=== PATIENT | male | born 1945 | race Caucasian/White ===

== ENCOUNTER 2019-10-18 08:46 | Inpatient (IN) | payer OTHER ==
[~2019-10-18] VITALS: Ht 177.8 cm; Wt 74.5 kg
[2019-10-18] MEDS ORDERED: ONDANSETRON HCL 4 MG/2 ML VIAL IV ONE (09:00)
[2019-10-18] MEDS ORDERED: HYDROmorphone HCL 2 MG/ML VL IV ONE (09:00)
[2019-10-18] MEDS ORDERED: DOPamine 1600MCG/ML D5W 250 ML IV ONE ×2 (09:04→09:15)
[2019-10-18 09:13] LABS: Basophils # (auto) 0.1 10 ^3/uL (0-0.2); Basophils % (auto) 1.6 % (0.0-2.0); Eosinophils # (auto) 0 10 ^3/uL (0-0.8); Eosinophils % (auto) 0.9 % (0.0-7.0); Hematocrit 49.1 % (41.0-53.0); Hemoglobin 16.5 g/dL (13.5-17.5); Lymphocytes # (auto) 1.3 10 ^3/uL (0.4-5.4); Lymphocytes % (auto) 24.6 % (10.0-50.0); Mean Corpuscular Hemoglobin 30.7 pg (28.0-32.0); Mean Corpuscular Hgb Conc. 33.6 g/dL (32.0-36.0); Mean Corpuscular Volume 91.4 fL (80.0-100.0); Monocytes # (auto) 0.4 10 ^3/uL (0-1.3); Monocytes % (auto) 7.8 % (0.0-12.0); Neutrophils # (auto) 3.3 10 ^3/uL (1.6-8.6); Neutrophils % (auto) 65.1 % (37.0-80.0); Nucleated Red Blood Cells % 0.1 %; Platelet Count (auto) 167 10^3/uL (140-450); Red Blood Cells 5.38 10^6/uL (4.5-5.90); Red Cell Distribution Width 13.3 % (11.8-14.3); White Blood Cell 5.1 10^3/uL (4.4-10.8)
[2019-10-18 09:31] LABS: Albumin 4.2 g/dL (3.4-5.0); BUN/Creatinine Ratio 13.7; Calcium 9.8 mg/dL (8.5-10.1); Potassium 4.2 mmol/L (3.5-5.1)
[2019-10-18 09:35] LABS: Bilirubin, Total 0.8 mg/dL (0.2-1.0); Total Protein 7.7 g/dL (6.4-8.2)
[2019-10-18 09:36] LABS: INR 1.03 (0.9-1.15); Partial Thromboplastin Time 25.7 sec (23.0-31.2)
[2019-10-18 11:05] LABS: Urine Bacteria NONE SEEN /hpf (None Seen); Urine Blood 2+ /uL (Negative); Urine Specific Gravity 1.012 (1.001-1.035); Urine WBC 1 /hpf (0 - 3)
[2019-10-18] MEDS ORDERED: MORPHINE SULF INJ 2 MG/ML SYRINGE 1ML IV ONE (12:45)
[2019-10-18] MEDS ORDERED: ENOXAPARIN SOD 80 MG/0.8ML SYRINGE SC ONE (12:45)
[2019-10-18] MEDS ORDERED: TAMSULOSIN HYDROCHLORIDE 0.4 MG CAP PO ONE (12:45)
[2019-10-18] MEDS ORDERED: cefTRIAXone 1GM/50ML D5W 50 ML IV ONE (12:45)
[2019-10-18] MEDS ORDERED: ASPirin 81 mg TAB PO ONE (12:45)
[2019-10-18] MEDS ORDERED: HEPARIN DRIP/D5W 100UNITS/ML 250 ML IV SCH (16:37)
[2019-10-18] MEDS: SODIUM CHLORIDE 0.9% 1,000 ML IV SCH ×3 (16:45→18:06)
[2019-10-18] MEDS ORDERED: HEPARIN SODIUM (PORCINE) 5000 UNITS/ML 1ML VIAL IV ONE (16:45)
[2019-10-18 19:10] LABS: Basophils # (auto) 0 10 ^3/uL (0-0.2); Basophils % (auto) 0.3 % (0.0-2.0); Eosinophils # (auto) 0 10 ^3/uL (0-0.8); Eosinophils % (auto) 0.3 % (0.0-7.0); Hematocrit 47.9 % (41.0-53.0); Hemoglobin 15.8 g/dL (13.5-17.5); Lymphocytes # (auto) 0.9 10 ^3/uL (0.4-5.4); Lymphocytes % (auto) 11.2 % (10.0-50.0); Mean Corpuscular Hemoglobin 30.2 pg (28.0-32.0); Mean Corpuscular Hgb Conc. 33.1 g/dL (32.0-36.0); Mean Corpuscular Volume 91.4 fL (80.0-100.0); Monocytes # (auto) 0.7 10 ^3/uL (0-1.3); Monocytes % (auto) 8.9 % (0.0-12.0); Neutrophils # (auto) 6.2 10 ^3/uL (1.6-8.6); Neutrophils % (auto) 79.3 % (37.0-80.0); Platelet Count (auto) 149 10^3/uL (140-450); Red Blood Cells 5.24 10^6/uL (4.5-5.90); Red Cell Distribution Width 13.2 % (11.8-14.3); White Blood Cell 7.9 10^3/uL (4.4-10.8)
[2019-10-18 19:46] LABS: INR 1.14 (0.9-1.15)
[2019-10-18 19:50] LABS: Partial Thromboplastin Time > 139.0 sec (23.0-31.2)
[2019-10-18] MEDS ORDERED: ONDANSETRON HCL 4 MG/2 ML VIAL IV PRN (21:15)
[2019-10-18] MEDS ORDERED: NITROGLYCERIN 0.4 MG SL TAB SL PRN (21:15)
[2019-10-18] MEDS ORDERED: MORPHINE SULF INJ 2 MG/ML SYRINGE 1ML IV PRN (21:15)
[2019-10-18] MEDS ORDERED: ACETYLCYSTEINE ORAL for CIN 20%(200MG/ML) 4ML PO SCH (22:00)
[2019-10-19 01:03] LABS: INR 1.13 (0.9-1.15); Partial Thromboplastin Time 43.5 sec (23.0-31.2)
[2019-10-19] MEDS: ACETYLCYSTEINE ORAL for CIN 20%(200MG/ML) 4ML PO SCH ×3 (01:06→21:42)
[2019-10-19] MEDS ORDERED: ACETYLCYSTEINE PO FOR APAP TOX 200 MG/ML ML ONE (01:21)
[2019-10-19 06:05] LABS: Basophils # (auto) 0 10 ^3/uL (0-0.2); Basophils % (auto) 0.5 % (0.0-2.0); Eosinophils # (auto) 0 10 ^3/uL (0-0.8); Eosinophils % (auto) 0.4 % (0.0-7.0); Hematocrit 45.7 % (41.0-53.0); Hemoglobin 15.8 g/dL (13.5-17.5); Lymphocytes % (auto) 18.7 % (10.0-50.0); Mean Corpuscular Hemoglobin 31.2 pg (28.0-32.0); Mean Corpuscular Hgb Conc. 34.5 g/dL (32.0-36.0); Mean Corpuscular Volume 90.5 fL (80.0-100.0); Monocytes # (auto) 0.5 10 ^3/uL (0-1.3); Monocytes % (auto) 9.5 % (0.0-12.0); Neutrophils # (auto) 3.9 10 ^3/uL (1.6-8.6); Neutrophils % (auto) 70.9 % (37.0-80.0); Platelet Count (auto) 145 10^3/uL (140-450); Red Blood Cells 5.06 10^6/uL (4.5-5.90); Red Cell Distribution Width 13.2 % (11.8-14.3); White Blood Cell 5.5 10^3/uL (4.4-10.8)
[2019-10-19 06:32] LABS: Albumin 3.7 g/dL (3.4-5.0); Calcium 8.8 mg/dL (8.5-10.1); Potassium 4.3 mmol/L (3.5-5.1)
[2019-10-19 06:33] LABS: INR 1.11 (0.9-1.15); Partial Thromboplastin Time 46.7 sec (23.0-31.2)
[2019-10-19 06:37] LABS: BUN/Creatinine Ratio 14.3; Bilirubin, Total 0.7 mg/dL (0.2-1.0); Total Protein 6.6 g/dL (6.4-8.2)
[2019-10-19 08:12] LABS: Urine Bacteria FEW /hpf (None Seen); Urine Blood 3+ /uL (Negative); Urine Budding Yeast OCCASIONAL /hpf (None Seen); Urine Mucus FEW (None Seen); Urine Specific Gravity 1.013 (1.001-1.035); Urine WBC 29 /hpf (0 - 3)
[2019-10-19] MEDS ORDERED: fentaNYL CITRATE 100 MCG/2 ML VL ONE (08:21)
[2019-10-19] MEDS ORDERED: ANGIOMAX 250 MG VIAL IV ONE (08:21)
[2019-10-19] MEDS ORDERED: MIDAZOLAM HCL 1MG/1ML-2 ML VIAL ONE (08:22)
[2019-10-19] MEDS ORDERED: SODIUM CHL 0.9% 0 ML ONE (08:22)
[2019-10-19] MEDS ORDERED: IOHEXOL 350 MG/ML 100ML IJ ONE (08:22)
[2019-10-19] MEDS ORDERED: LIDOCAINE 2%HCL (LOCAL ANESTH.) INJ 20ML MDV ONE (08:24)
[2019-10-19] MEDS ORDERED: CLOPIDOGREL 300 MG TAB ONE (09:15)
[2019-10-19] MEDS ORDERED: ASPirin 81 mg TAB ONE (09:20)
[2019-10-19] MEDS ORDERED: ACETAMINOPHEN 500 MG TAB PO PRN (09:45)
[2019-10-19] MEDS ORDERED: ASPirin 81 mg TAB PO SCH (10:00)
[2019-10-19] MEDS: HYDROcodone-ACET 5/325MG TAB PO PRN ×3 (10:01→22:57)
--- NOTE | 2019-10-19 13:47 | NUR ---
Telemetry admit from Java [employer] Developer SCOTT TUCKER admitted to Telemetry unit after SBAR received. Patient oriented to gianna VALERO RN, unit, room, bed, and unit policies regarding patient care and visiting hours. Patient now on continuous telemetry monitoring, tele box # [id number] and telemetry reading on arrival to unit is SR [id number]. Patient on room air, weighed by bedscale and encouraged to call if they need something. All questions and concerns addressed, patient verbalized understanding.
--- NOTE | 2019-10-19 13:52 | NUR ---
PATIENT S/P C WITH MD GERMAN WITH ACCESS POINT ON RIGHT GROIN. SITE ASSESSED WITH GROUNDS PERSON FIORELLA POLANCO AT BED SIDE. SITE DRY, CLEAN AND INTACT, NO OTHER SIGNS OF TRAUMA. WILL CONTINUE TO MONITOR.
[2019-10-19 14:45] LABS: Cholesterol 176 mg/dL (< 200)
[2019-10-19 14:47] LABS: HDL Cholesterol 50 mg/dL (40-59); LDL Cholesterol 123 mg/dL (< 100); Triglycerides 66 mg/dL (< 150)
[2019-10-19 15:04] VITALS: BP 159/94
[2019-10-19] MEDS ORDERED: OMEP20TA PO (15:28)
[2019-10-19 17:00] VITALS: BP 157/91
--- NOTE | 2019-10-19 17:01 | NUR ---
UROLOGY CONSULTATION WELL LOGGING MUD ANALYSIS CAPTAIN Raquel at bed side discussing POC with patient Patient verbalizes understanding
[2019-10-19] MEDS ORDERED: TAMSULOSIN HYDROCHLORIDE 0.4 MG CAP PO SCH (18:00)
--- NOTE | 2019-10-19 18:43 | NUR ---
PATIENT C/O MILD DISCOMFORT, WHEN ASSESSED, NEWLY FORMED HEMATOMA NOTED AT RIGHT GROIN. PATIENT ADVISED TO REMAIN ON STRICT BED REST AND WEIGHT APPLIED FOR PRESSURE. WILL NOTIFY .
--- NOTE | 2019-10-19 18:46 | NUR ---
DR GERMAN PAGED THROUGH EXCHANGE SYSTEM TO INFORM OF NEWLY FORMED HEMATOMA ON LHC ACCESS GROIN. PATIENT EXPERIENCING SITE DISCOMFORT. PRESSURE APPLIED AT SITE. AWAITING CALL BACK FROM .
--- NOTE | 2019-10-19 19:07 | NUR ---
MD GERMAN RETURNED CALL AND AWARE OF FORMED HEMATOMA. PER MD APPLY PRESSURE TO SITE FOR ABOUT 15 MIN AND HAVE PATIENT MAINTAIN STRICT BED REST FOR THE REST OF NIGHT. PATIENT VERBALIZES UNDERSTANDING ON STRICT BED REST.
--- NOTE | 2019-10-19 19:40 | NUR ---
Opening Shift Note Received report from issa Fishman. Assumed care of patient, awake and alert. No S/S of distress/SOB or pain. Patient has hematoma to left groin at incision site. incision site is clean dry and intact. palpable bilateral extremity pulses, patient able to wiggle toes, skin color intact and normal. Patient instructed to maintain strict bedrest per md escalera. patient verbalized understanding. Instructed on POC and to call for assist PRN, will continue to monitor for changes Q1hr and PRN. Addendum: 10/20/19 at 0127 by DIPTI LIND RN RN right groin incision correction
--- NOTE | 2019-10-19 20:40 | NUR ---
incision site Patient has hematoma to left groin at incision site. incision site is clean dry and intact. palpable bilateral extremity pulses, patient able to wiggle toes, skin color intact and normal. Patient instructed to maintain strict bedrest per md escalera. patient verbalized understanding. Addendum: 10/20/19 at 0127 by DIPTI LIND RN RN right groin incision correction
[2019-10-19 22:00] VITALS: BP 150/99
[2019-10-19] MEDS ORDERED: ATORVASTATIN 20 MG TAB PO SCH (22:00)
--- NOTE | 2019-10-19 22:40 | NUR ---
incision site Patient has hematoma to left groin at incision site no change in hematoma. incision site is clean dry and intact. palpable bilateral extremity pulses, patient able to wiggle toes, skin color intact and normal. Patient instructed to maintain strict bedrest per md escalera. patient verbalized understanding. Addendum: 10/20/19 at 0127 by DIPTI LIND RN RN right groin incision correction
--- NOTE | 2019-10-19 22:57 | NUR ---
piain pain 5/10 aching to right groin . patient medicated per md order
--- NOTE | 2019-10-19 23:57 | NUR ---
pain patient sleeping no signs of sob distress or pain
--- NOTE | 2019-10-20 01:00 | NUR ---
incision site Patient has hematoma to left groin at incision site. No change in hematoma. incision site is clean dry and intact. palpable bilateral extremity pulses, patient able to wiggle toes, skin color intact and normal. Patient instructed to maintain strict bedrest per md escalera. patient verbalized understanding. Addendum: 10/20/19 at 0127 by DIPTI LIND RN RN right groin incision correction
[2019-10-20] MEDS: SODIUM CHLORIDE 0.9% 1,000 ML IV SCH (02:06)
--- NOTE | 2019-10-20 02:52 | NUR ---
incision site Patient has hematoma to right groin at incision site. No change in size of hematoma. incision site is clean dry and intact. palpable bilateral extremity pulses, patient able to wiggle toes, skin color intact and normal. Patient instructed to maintain strict bedrest per md escalera. patient verbalized understanding.
[2019-10-20] MEDS: HYDROcodone-ACET 5/325MG TAB PO PRN (04:18)
--- NOTE | 2019-10-20 04:19 | NUR ---
5/10 pain aching to right groin. patient medicated per md order.
--- NOTE | 2019-10-20 04:23 | NUR ---
IV removal IV DC'd to left ac with clean sterile technique, catheter fully intact. Pressure dressing applied to site. Patient tolerated well.
--- NOTE | 2019-10-20 04:24 | NUR ---
incision site Hematoma to right groin at incision site. No change in size of hematoma. incision site is clean dry and intact. palpable bilateral extremity pulses, patient able to wiggle toes, skin color intact and normal. Patient instructed to maintain strict bedrest per md escalera. patient verbalized understanding.
[2019-10-20 05:00] VITALS: BP 152/87
--- NOTE | 2019-10-20 05:18 | NUR ---
pain patient sleeping no signs of sob distress or pain
--- NOTE | 2019-10-20 06:45 | NUR ---
patient rounds patient resting in bed denies sob,distress or pain. iv is intact and patent. patient dressing to right groin is clean dry and intact, no change in hematoma size. pulses palpable bilaterally to lower extremities patient able to wiggle toes, bilateral lower extremities are warm to touch, skin tone within normal limits.
--- NOTE | 2019-10-20 07:26 | NUR ---
report given to dayshift rn patient denies sob distress or pain
[2019-10-20 09:00] VITALS: BP 145/91
[2019-10-20] MEDS: ACETYLCYSTEINE ORAL for CIN 20%(200MG/ML) 4ML PO SCH (09:44)
[2019-10-20] MEDS ORDERED: ASPirin-EC 81 mg tab PO SCH (10:00)
[2019-10-20] MEDS ORDERED: FINASTERIDE 5 MG TAB PO SCH (10:00)
[2019-10-20] MEDS ORDERED: CLOPIDOGREL BISULFATE 75 MG TAB PO SCH (10:00)
[2019-10-20] MEDS ORDERED: CLOP75TA28 PO (12:24)
[2019-10-20] MEDS ORDERED: TAM04C PO (12:24)
[2019-10-20] MEDS ORDERED: ASPI-543 PO (12:24)
[2019-10-20] MEDS ORDERED: FIN5T PO (12:24)
[2019-10-20 13:00] VITALS: BP 169/99
--- NOTE | 2019-10-20 16:15 | NUR ---
Patient education given, patient made aware of new prescriptions, patient IV discontinued, patient tele monitor returned to monitor techs. Patient taken down to private vehicle via wheelchair.
== END 2019-10-20 16:20 | disposition home or self-care (01) | DRG 281 ==
LOC: ER 08:46 → EDBD 08:46 → TELE 08:47 → TELE-CENTR 10-19 13:47
PROVIDERS: ADMIT Nurse Practitioner; ATTEND Internal Medicine
PROC: 4A023N7 Measurement of Cardiac Sampling and Pressure, Left Heart, Percutaneous Approach (ICD-10-PCS; principal; 2019-10-19)
PROC: B2111ZZ Fluoroscopy of Multiple Coronary Arteries using Low Osmolar Contrast (ICD-10-PCS; 2019-10-19)
PROC: B2151ZZ Fluoroscopy of Left Heart using Low Osmolar Contrast (ICD-10-PCS; 2019-10-19)
DX: I21.4 Non-ST elevation (NSTEMI) myocardial infarction (principal); N17.9 Acute kidney failure, unspecified; N13.2 Hydronephrosis with renal and ureteral calculous obstruction; I10 Essential (primary) hypertension; R00.1 Bradycardia, unspecified; R63.4 Abnormal weight loss; R10.9 Unspecified abdominal pain; R79.89 Other specified abnormal findings of blood chemistry; Z20.828 Contact with and (suspected) exposure to other viral communicable diseases; N40.0 Benign prostatic hyperplasia without lower urinary tract symptoms; Z85.09 Personal history of malignant neoplasm of other digestive organs; Z90.49 Acquired absence of other specified parts of digestive tract; Z92.21 Personal history of antineoplastic chemotherapy; Z79.899 Other long term (current) drug therapy; Z87.891 Personal history of nicotine dependence
CPT/HCPCS: 36415; 71045; 74176; 80053; 80061; 81001; 83036; 83690; 83880; 84439; 84443; 84484; 85025; 85610; 85730; 87426; 93005; 93458; 96365; 96375; 99152; 99291; G0378; J0696; J2250; J2405